=== PATIENT | male | born 1995 | race Caucasian/White ===

== ENCOUNTER 2016-09-10 13:01 | Emergency (ER) ==
--- NOTE | 2016-09-10 13:58 | Diag Imaging Result Document ---
PROCEDURE NAME: FLAT/UPRIGHT ABD/1 VIEW CHEST - 09/10/2016 FLAT AND UPRIGHT ABDOMEN: FINDINGS: There is some stool in the ascending colon and food and fluid in the stomach without evidence of distention. Small bowel is not distended. There is no evidence of organomegaly or mass. There is no evidence of free air. IMPRESSION: Minimal constipation. PA CHEST: Normal chest.
[2016-09-10 14:42] LABS: MANUAL DIFF NEEDED? NO
[2016-09-10 14:43] LABS: BASO% 0.1 % (0.0-0.8); EOS# 0.06 X1000 (0.0-0.7); EOS% 0.7 % (0.0-10.0); HEMOGLOBIN 15.7 g/dL (14.0-18.0); IMM GRAN# 0.02 X1000 (0.0-0.04); IMM GRAN% 0.2 % (0.0-0.5); LYMPH# 1.93 X1000 (1.2-3.4); LYMPH% 22.6 % (20.5-51.1); MCHC 35.7 g/dL (33-37); MCV 84.1 FL (81-99); MONO# 0.52 X1000 (0.11-0.59); MONO% 6.1 % (1.7-9.3); MPV 9.6 FL (7.4-10.4); NEUT% 70.3 % (42.2-75.2); PLT 324 X1000 (130-400); RBC 5.23 XMIL (4.7-6.1)
[2016-09-10 14:59] LABS: AGAP 9; ALBUMIN 4.4 g/dL (3.5-5.0); ALKALINE PHOSPHATASE 91 U/L (32-122); AMYLASE 88 U/L (20-200); BUN 9 mg/dL (8-22); CALCIUM 10.4 mg/dL (8.8-10.2); CHLORIDE 100 mmol/L (98-107); COSMO 275; GOT 13 U/L (10-34); GPT 14 U/L (10-44); LIPASE 31 U/L (13-60); POTASSIUM 4.6 mmol/L (3.5-5.1); SODIUM 138 mmol/L (136-145); TCO2 29 mmol/L (25-35); TOTAL PROTEIN 7.1 g/dL (6.3-8.3)
[2016-09-10] MEDS ORDERED: ZOFRAN ODT PO ONE (15:23)
--- NOTE | 2016-09-10 15:23 | PROVIDER DOCUMENTATION ---
HPI-Abdominal Pain/GI Problem - General Chief Complaint: N/V/D Stated Complaint: N/V/D Time Seen by Provider: 09/10/16 14:56 Source: patient Allergies/Adverse Reactions: Patient Allergies Allergy/AdvReac Type Severity Reaction Status Date / Time egg AdvReac SHORTNESS Verified 08/24/16 20:53 OF BREATH lactase [From Dairy [employer]] AdvReac SHORTNESS Verified 08/24/16 20:53 OF BREATH Home Medications: Home Medication List Medication Instructions Recorded Confirmed Last Taken Type Famotidine [Pepcid] 20 mg PO DAILY #20 tablet 08/25/16 Unknown Rx Ketorolac [Toradol] 10 mg PO Q6H PRN PRN #10 tablet 08/25/16 Unknown Rx Metoclopramide [Reglan] 10 mg PO BID PRN #10 tablet 08/25/16 Unknown Rx Docusate Sodium [Colace] 100 mg PO BID #10 capsule 09/10/16 Unknown Rx Ondansetron [Zofran] 4 mg PO Q6H PRN PRN #15 tablet 09/10/16 Unknown Rx - History of Present Illness-ABD Nature of Presenting Problems: 20 yo male presents to ER with c/o RUQ pain and N/V for the past 2 weeks on and off. He did have one loose stool this morning. Abdominal Pain Onset Location: reports: RUQ Pain Radiation: reports: no radiation Quality of Pain: reports: cramping Severity in ED: reports: mild Onset/Duration: reports: other (2 weeks ago) Timing: reports: intermittent Activities at Onset: reports: none Exposure to sick contacts?: No Modifying Factors: improves with: eating (worsens) Associated Symptoms: reports: nausea, vomiting Last BM: this morning Dark Stools Present?: reports: none noticed Rectal Bleeding: reports: none # of Diarrhea Episodes: 1 Rectal Pain: reports: none # of Vomiting Episodes: 4 Emesis Description: reports: clear Bruising or Bleeding Gums?: No Similar Symptoms Previously?: Yes Recently seen or treated by another doctor?: No Review of Systems - Adult - REVIEW OF SYSTEMS - ADULT Constitutional: reports: no symptoms reported Eyes: reports: no symptoms reported Ears, Nose, Mouth & Throat: reports: no symptoms reported Cardiovascular: reports: no symptoms reported Respiratory: reports: no symptoms reported Gastrointestinal: reports: see HPI, abdominal pain, nausea, vomiting Genitourinary: reports: no symptoms reported Musculoskeletal: reports: no symptoms reported Integumentary: reports: no symptoms reported Neurological: reports: no symptoms reported Psychiatric: reports: no symptoms reported Endocrine: reports: no symptoms reported Hematologic/Lymphatic: reports: no symptoms reported Allergic/Immunologic: reports: no symptoms reported All Other Systems: Reviewed and Negative Past History - Adult - PAST MEDICAL HISTORY-ADULT Review of Records: reports: Old Records Reviewed, Nursing Assessment Review, Medications Reviewed, Social history reviewed & non-contributory. Major Childhood Illnesses: reports: denies history Cardiovascular: reports: denies history Respiratory: reports: asthma Gastrointestinal: reports: GERD, other (constipation) Obstetrical/Gynecological: reports: denies history Genitourinary: reports: denies history Musculoskeletal: reports: denies history Neurological: reports: denies history Psychiatric: reports: depression Endocrine/Immune: reports: denies history Other Conditions: reports: denies history - PRIOR SURGERIES/PROCEDURES Surgical/Procedure History: reports: tonsillectomy, orthopedic (extremity) (knee ) - IMMUNIZATION STATUS Childhood Immunizations: See Nurse Assessment Flu Vaccine: See Nurse Assessment - FAMILY HISTORY Family History: kidney stones - SOCIAL HISTORY Smoking: chew (1/3 can per day) Provider spent 3-5 mins advising pt. on dangers of tobacco.: Discussed manners to quit use, and f/u contacts for add'l counseling. Substance Use: denies Alcohol Use Frequency: never Living Situation: family Physical Exam-General - PHYSICAL EXAM-ADULT Initial Vital Signs Reviewed: Yes - CONSTITUTIONAL General Appearance: appears well, alert, no apparent distress - EYES Eyes: PERRL/EOMI - HEAD, EARS, NOSE, MOUTH & THROAT HENMT: normocephalic/atraumatic - RESPIRATORY Respiratory: no respiratory distress - CARDIOVASCULAR Cardiovascular: normal peripheral pulses - GASTROINTESTINAL (ABDOMEN) Abdominal Exam: normal bowel sounds, soft, tenderness (RUQ and side). negative : McBurney's point tenderness, Mathews's sign - MUSCULOSKELETAL Back Exam: normal inspection, no CVA tenderness, no vertebral tenderness Extremity: normal gait, normal inspection - SKIN Integumentary: normal color, normal turgor, warm/dry - NEUROLOGIC Neurologic: grossly normal - PSYCHIATRIC Psych/Mental Status: normal mood/affect, normal thought content, normal thought process, oriented x 3 Progress - PLAN OF CARE/RESULTS Progress/Plan/Lab Results: 1620-Discussed x-ray& lab results/dx/tx/discharge and follow up with patient; he verbalized understanding. Laboratory Tests 09/10/16 09/10/16 09/10/16 14:39 14:39 15:05 WBC 8.54 RBC 5.23 Hgb 15.7 Hct 44.0 MCV 84.1 MCH 30.0 MCHC 35.7 RDW Std Deviation 13.1 Plt Count 324 MPV 9.6 Immature Gran % (Auto) 0.2 Neut % (Auto) 70.3 Lymph % (Auto) 22.6 Garvin % (Auto) 6.1 Eos % (Auto) 0.7 Baso % (Auto) 0.1 Immature Gran # (Auto) 0.02 Neut # (Auto) 6.00 Lymph # (Auto) 1.93 Garvin # (Auto) 0.52 Eos # (Auto) 0.06 Baso # (Auto) 0.01 Sodium 138 Potassium 4.6 Chloride 100 Carbon Dioxide 29 Anion Gap 9 BUN 9 Creatinine 0.8 Estimated GFR/1.73 m2 > 60 BUN/Creatinine Ratio 11 Glucose 112 H Calculated Osmolality 275 Calcium 10.4 H Total Bilirubin 1.00 AST 13 ALT 14 Alkaline Phosphatase 91 Total Protein 7.1 Albumin 4.4 Globulin 3.0 Albumin/Globulin Ratio 2.0 Amylase 88 Lipase 31 Urine Source CLEAN CATCH Urine Color YELLOW Urine Clarity CLEAR Urine pH 6.5 Ur Specific [place] 1.015 Urine Protein NEGATIVE Urine Ketones NEGATIVE Urine Blood NEGATIVE Urine Nitrite NEGATIVE Urine Bilirubin NEGATIVE Urine Urobilinogen NORMAL Urine Microscopic RBC Not Reportable Urine WBC TRACE A Urine Microscopic WBC <10 Ur Epithelial Cells <10 Urine Glucose 1+(100 mg/dL) A Orders Category Date Time Status ED: Orthostatic Vital Signs (E as directed Care 09/10/16 15:20 Active NPO Diet 09/10/16 13:20 Active flat [FLAT/UPRIGHT ABD/1 VIEW CHEST] [RAD] Stat Exams 09/10/16 13:20 Draft AMYLASE [CHEM] Stat Lab 09/10/16 14:39 Completed CBC WITH ELECTRONIC DIFF [HEME] Stat Lab 09/10/16 14:39 Completed COMPREHENSIVE METABOLIC PANEL [CHEM] Stat Lab 09/10/16 14:39 Completed LIPASE [CHEM] Stat Lab 09/10/16 14:[address] W/POSS RFLX CULT [URINALYSIS] Stat Lab 09/10/16 15:05 Completed Ondansetron Odt [Zofran Odt] Med 09/10/16 15:23 Discontinued 4 mg PO NOW ONE Vital Signs - 24 hr 09/10/16 09/10/16 13:17 15:39 Temperature 97.8 F Pulse Rate 83 Pulse Rate [ 57 L Sitting] Pulse Rate [ 69 Standing] Pulse Rate [ 71 Supine] Respiratory 18 Rate Blood Pressure 149/82 Blood Pressure 119/075 [Sitting] Blood Pressure 111/071 [Standing] Blood Pressure 112/068 [Supine] O2 Sat by Pulse 98 Oximetry - XRAY 1 XRAY Study: Chest, Abdomen Impression: Abnormal (mild constipation) XRAY Interpretation: Interpreted by Dr. Vazquez Departure - Departure Time of Disposition Order: 16:24 DIAGNOSIS: Nausea Constipation Qualifiers: Constipation type: unspecified constipation type Qualified Code(s): K59.00 - Constipation, unspecified Abdominal pain Qualifiers: Abdominal location: right upper quadrant Qualified Code(s): R10.11 - Right upper quadrant pain Disposition: HOME 01 Certified Medical Emergency: Emergent Condition: Good Additional Instructions: Follow up with primary care doctor. Increase water intake. Increase fiber intake. Follow a bland diet. 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 ED Follow Up Instructions: You have been treated by a care provider in the Emergency Department. These instructions are being provided to you so you can have an understanding of how to care for yourself upon discharge. Upon discharge from the Emergency Department, you are responsible for making arrangements for follow-up care by a physician of your choice. Take all prescribed medications as directed. Return to the Emergency Department immediately for any new or worsening symptoms. You may call the Physician Referral phone number at [phone] to obtain a list of Physicians who are taking new patients. Prescriptions: Docusate Sodium [Colace] 100 mg PO BID #10 capsule Ondansetron [Zofran] 4 mg PO Q6H PRN PRN #15 tablet PRN Reason: Nausea Referrals: David Whittaker MD [Primary Care Provider] - Attestation - Physician/ FELECIA Attestation Patient care was provided by Advanced Practice Provider:: Yes Advanced Practice Provider:: Marly Krause Advanced Practice Provider documentation review:: The Mid-level provider documentation, treatment plan and medical decision making was reviewed by the physician who agrees with all treatment and medical decision making by the MLP.
[2016-09-10 15:26] LABS: URINE CULTURE PL NEEDED? NO; URINE SOURCE CLEAN CATCH
[2016-09-10 15:42] VITALS: BP 112/068
[2016-09-10 15:51] LABS: BILIRUBIN URINE NEGATIVE (NEGATIVE); BLOOD URINE NEGATIVE (NEGATIVE); CLARITY CLEAR (CLEAR); COLOR YELLOW; LEUKOCYTES URINE TRACE (NEGATIVE); NITRITE URINE NEGATIVE (NEGATIVE); PH URINE 6.5; PROTEIN URINE NEGATIVE (NEGATIVE); SP GRAVITY URINE 1.015; UROBILINOGEN URINE NORMAL
[2016-09-10 15:52] LABS: URINE EPITHELIAL CELLS <10 /HPF (<10); URINE WBC <10 /HPF (<10)
== END 2016-09-10 16:34 | disposition home or self-care (01) ==
LOC: P.ED 13:01
DX: K59.00 Constipation, unspecified (principal); R10.11 Right upper quadrant pain; R11.2 Nausea with vomiting, unspecified; R19.7 Diarrhea, unspecified; R10.811 Right upper quadrant abdominal tenderness; F17.220 Nicotine dependence, chewing tobacco, uncomplicated; Z71.6 Tobacco abuse counseling
CPT/HCPCS: 36415; 74022; 80053; 81001; 82150; 83690; 85025; 99284